=== PATIENT | female | born 1960 | race African-American/Black ===

== ENCOUNTER 2016-06-18 19:14 | Emergency (ER) | payer OTHER ==
[~2016-06-18] VITALS: Ht 160 cm; Wt 78.0 kg
[2016-06-18] MEDS ORDERED: ONDANSETRON HCL 4MG/2ML VIAL IV STA (19:59)
[2016-06-18] MEDS ORDERED: SODIUM CHLORIDE 0.9% 1,000 ML IV ONE (19:59)
[2016-06-18 20:13] LABS: BASOPHILS % 0.7 % (0.0-2.0); EOSINOPHILS % 0.4 % (0.0-5.0); HEMATOCRIT. 44.6 % (36.0-48.0); HEMOGLOBIN. 15.4 g/dL (12.0-16.0); LYMPHOCYTES % 43.1 % (20.0-50.0); MEAN CORPUSCULAR HEMOGLOBIN 33.4 pg (28.0-32.0); MEAN CORPUSCULAR HGB CONC 34.5 g/dL (31.0-37.0); MEAN CORPUSCULAR VOLUME 96.9 fL (81.0-99.0); MEAN PLATELET VOLUME 8.1 fl (7.4-10.4); NEUTROPHILS % 51.8 % (40.0-76.0); PLATELET 299 x1000/uL (130-400); RED BLOOD CELL COUNT 4.61 mill/uL (4.2-5.4); RED CELL DISTRIBUTION WIDTH 12.4 % (11.6-14.6); WHITE BLOOD COUNT 6.7 x1000/uL (4.5-11.0)
[2016-06-18 20:18] LABS: CHLORIDE 105 mEq/L (98-107)
[2016-06-18 20:20] LABS: ANION GAP 13; CALCIUM 8.5 mg/dL (8.5-10.1); CARBON DIOXIDE 31 mEq/L (21-32); INDEX HEMOLYSI 1 (1-3); INDEX ICTERIC 1 (1-4); INDEX LIPEMIC 1 (1-3); UREA NITROGEN BLOOD 11 mg/dL (7-21)
[2016-06-18 20:24] LABS: eGFR > 60 mL/min (>60)
[2016-06-18 21:00] VITALS: BP 127/88
== END 2016-06-18 21:32 | disposition home or self-care (01) ==
LOC: ER 19:16
DX: F10.229 Alcohol dependence with intoxication, unspecified (principal); R11.2 Nausea with vomiting, unspecified; F17.210 Nicotine dependence, cigarettes, uncomplicated; Y90.9 Presence of alcohol in blood, level not specified; Z88.6 Allergy status to analgesic agent
CPT/HCPCS: 36415; 80048; 85025; 96361; 96374; 99284; J2405; J7030; Z7610

== ENCOUNTER 2018-03-29 01:59 | Emergency (ER) | payer MEDICAID, OTHER ==
[~2018-03-29] VITALS: Ht 160 cm; Wt 74.0 kg
[2018-03-29 02:07] VITALS: BP 159/105
== END 2018-03-29 06:45 | disposition left against medical advice (07) ==
LOC: ER 01:59
DX: F41.9 Anxiety disorder, unspecified (principal); Z53.21 Procedure and treatment not carried out due to patient leaving prior to being seen by health care provider